=== PATIENT | male | born 1975 | race Two or more races ===

== ENCOUNTER → 2025-04-04 | Emergency (ER) | payer OTHER ==
[~2025-04-04] VITALS: Ht 180.3 cm; Wt 104.3 kg
== END | disposition left against medical advice (07) ==
LOC: ER 16:56
DX: S90.121A Contusion of right lesser toe(s) without damage to nail, initial encounter (principal); X58.XXXA Exposure to other specified factors, initial encounter; Y93.89 Activity, other specified; Y92.89 Other specified places as the place of occurrence of the external cause; Y99.9 Unspecified external cause status